=== PATIENT | female | born 1975 | race Caucasian/White ===

== ENCOUNTER 2017-09-19 16:13 | Emergency (ER) | payer MEDICAID, OTHER ==
[~2017-09-19] VITALS: Ht 175.3 cm; Wt 72.0 kg
[2017-09-19] MEDS ORDERED: ketorolac trometh inj. 60 MG/2 ML VIAL IM ONE (16:30)
[2017-09-19] MEDS ORDERED: NAPR-56 PO (16:31)
[2017-09-19] MEDS ORDERED: PENI250T2 PO (16:31)
[2017-09-19 17:13] VITALS: BP 132/72
== END 2017-09-19 17:15 | disposition home or self-care (01) ==
LOC: ER 16:15
DX: S02.5XXA Fracture of tooth (traumatic), initial encounter for closed fracture (principal); K00.7 Teething syndrome; Z88.8 Allergy status to other drugs, medicaments and biological substances; X58.XXXA Exposure to other specified factors, initial encounter; Y93.89 Activity, other specified; Y99.8 Other external cause status; Y92.89 Other specified places as the place of occurrence of the external cause
CPT/HCPCS: 96372; 99283; J1885

== ENCOUNTER 2017-12-27 19:14 | Emergency (ER) | payer MEDICAID, OTHER ==
[~2017-12-27] VITALS: Ht 170.2 cm; Wt 65.0 kg
[2017-12-27 19:20] VITALS: BP 160/117
== END 2017-12-27 19:58 | disposition left against medical advice (07) ==
LOC: ER 19:15
DX: R00.0 Tachycardia, unspecified (principal); Z53.21 Procedure and treatment not carried out due to patient leaving prior to being seen by health care provider

== ENCOUNTER 2019-04-21 14:10 | Emergency (ER) | payer OTHER ==
[~2019-04-21] VITALS: Ht 172.7 cm; Wt 73.9 kg
[~2019-04-21 14:10] MED LIST: ALBU18HF2 INH; PANT-47 PO
[2019-04-21 14:26] VITALS: BP 137/97
== END 2019-04-21 16:37 | disposition left against medical advice (07) ==
LOC: ER 14:11
DX: R19.7 Diarrhea, unspecified (principal); R42 Dizziness and giddiness; Z53.21 Procedure and treatment not carried out due to patient leaving prior to being seen by health care provider
CPT/HCPCS: 93005

== ENCOUNTER 2020-11-09 11:26 | Emergency (ER) | payer SELFPAY ==
[~2020-11-09] VITALS: Ht 170.2 cm; Wt 84.0 kg
[2020-11-09 11:43] VITALS: BP 158/109
[2020-11-09] MEDS ORDERED: morphine 4 MG/ML inj SYRINge IV PRN (11:45)
[2020-11-09] MEDS ORDERED: normal saline 1000ML IV soln IVB ONE (11:45)
[2020-11-09] MEDS ORDERED: ondansetron/PF 4mg/2ml inj IV ONE (11:45)
[2020-11-09 12:01] LABS: BASOPHILS # (AUTO) 0.1 X10'3 (0-0.2); BASOPHILS % (AUTO) 1.9 % (0-1); EOSINOPHILS # (AUTO) 0.1 X10'3 (0-0.9); EOSINOPHILS % (AUTO) 1.9 % (0-6); HEMATOCRIT 41.4 % (35.0-45.0); HEMOGLOBIN 14.1 g/dl (12.0-16.0); LYMPHOCYTES # (AUTO) 1.5 X10'3 (1.1-4.8); LYMPHOCYTES % (AUTO) 39.4 % (21-51); MEAN CORPUSCULAR HEMOGLOBIN 30.6 PG (27.0-31.0); MEAN PLATELET VOLUME 8.3 FL (7.4-10.4); MONOCYTES # (AUTO) 0.6 X10'3 (0-0.9); MONOCYTES % (AUTO) 15.6 % (2-12); NEUTROPHILS # (AUTO) 1.5 X10'3 (1.8-7.7); NEUTROPHILS % (AUTO) 41.2 % (42-75); PLATELET COUNT 239 X10'3 (140-440); RED BLOOD COUNT 4.61 X10'6 (4.20-5.60); RED CELL DISTRIBUTION WIDTH 12.6 % (11.5-14.5); WHITE BLOOD COUNT 3.7 X10'3 (4.5-11.0)
[2020-11-09 12:26] LABS: ALANINE AMINOTRANSFERASE 34 U/L (12-78); ALBUMIN 4.4 G/DL (3.4-5.0); ALBUMIN/GLOBULIN RATIO 1.1 (1.1-1.5); ALKALINE PHOSPHATASE 78 IU/L (46-116); ANION GAP 10 (8-16); ASPARTATE AMINO TRANSFERASE 24 U/L (10-37); BILIRUBIN,TOTAL 0.8 MG/DL (0.1-1.0); BLOOD UREA NITROGEN 13 MG/DL (7-18); BUN/CREATININE RATIO 16.5 (6.6-38.0); CALCIUM 9.3 MG/DL (8.5-10.1); CHLORIDE 103 MMOL/L (99-107); CREATININE 0.79 MG/DL (0.40-0.90); GLUCOSE 108 MG/DL (70-104); POTASSIUM 3.6 MMOL/L (3.5-5.1); SODIUM 137 MMOL/L (135-145); TOTAL CARBON DIOXIDE 23.7 MMOL/L (24-32); TOTAL PROTEIN 8.3 G/DL (6.4-8.2); eGFR 78 ML/MIN
[2020-11-09 12:34] LABS: MAGNESIUM 2.2 MG/DL (1.5-2.4)
[2020-11-09] MEDS ORDERED: CHLO25CA10 PO (14:32)
--- NOTE | 2020-11-09 14:43 | NUR ---
Spoke with Dr. Martin regarding previously ordered medications of NS bolus, morphine, and zofran. Dr. Martin stated that those were no longer needed and to cancel orders.
== END 2020-11-09 15:19 | disposition home or self-care (01) ==
LOC: ER 11:27
DX: R00.2 Palpitations (principal); F10.129 Alcohol abuse with intoxication, unspecified; F41.9 Anxiety disorder, unspecified; R11.0 Nausea; R07.89 Other chest pain; R06.02 Shortness of breath; I10 Essential (primary) hypertension; F31.9 Bipolar disorder, unspecified; F20.9 Schizophrenia, unspecified; F12.90 Cannabis use, unspecified, uncomplicated; Z86.73 Personal history of transient ischemic attack (TIA), and cerebral infarction without residual deficits; Z72.89 Other problems related to lifestyle; Z98.890 Other specified postprocedural states; Z88.8 Allergy status to other drugs, medicaments and biological substances; Z79.899 Other long term (current) drug therapy; Y90.9 Presence of alcohol in blood, level not specified
CPT/HCPCS: 36415; 71045; 80053; 83735; 83880; 84484; 85025; 93005; 99285

== ENCOUNTER 2024-03-30 09:34 | Emergency (ER) | payer BC, OTHER ==
[~2024-03-30] VITALS: Ht 175.3 cm; Wt 85.2 kg
[~2024-03-30 09:34] MED LIST changes: +CHLO25CA10 PO
[2024-03-30 09:41] VITALS: BP 163/106
[2024-03-30 10:39] LABS: BILIRUBIN,URINE NEGATIVE (Neg); CLARITY,URINE CLEAR (Clear); COLOR,URINE YELLOW (Yellow); GLUCOSE, URINE NEGATIVE (Neg); KETONES,URINE NEGATIVE (Neg); LEUKOCYTE ESTERASE ,URINE MODERATE (Neg); NITRITES, URINE NEGATIVE (Neg); OCCULT BLOOD,URINE NEGATIVE (Neg); PROTEIN,URINE NEGATIVE (Neg); UROBILINOGEN,URINE 0.2 E.U/dL (0.2-1.0)
[2024-03-30 10:51] LABS: UA COLLECTION TYPE CLN CATCH MIDSTREAM
[2024-03-30 10:54] LABS: BACTERIA,URINE FEW /HPF (Neg); MUCUS STRANDS FEW /LPF (Neg); RBC,URINE 0-2 /HPF (0-2); SQUAMOUS EPITHELIAL CELL,UR FEW /LPF (FEW); TRANSITIONAL EPI CELLS,URINE FEW /HPF
[2024-03-30 10:55] LABS: BASOPHILS % (AUTO) 0.7 % (0-1); EOSINOPHILS % (AUTO) 0.7 % (0-6); HEMATOCRIT 42.2 % (35.0-45.0); LYMPHOCYTES # (AUTO) 2.4 X10'3 (1.1-4.8); LYMPHOCYTES % (AUTO) 39.2 % (21-51); MEAN CORPUSCULAR HEMOGLOBIN 30.1 PG (27.0-31.0); MEAN CORPUSCULAR HGB CONC 33.2 g/dL (33.0-36.5); MEAN CORPUSCULAR VOLUME 90.7 FL (78-98); MEAN PLATELET VOLUME 8.7 FL (7.4-10.4); MONOCYTES # (AUTO) 0.6 X10'3 (0-0.9); MONOCYTES % (AUTO) 10.6 % (2-12); NEUTROPHILS % (AUTO) 48.8 % (42-75); PLATELET COUNT 291 X10'3 (140-440); RED BLOOD COUNT 4.66 X10'6 (4.20-5.60); RED CELL DISTRIBUTION WIDTH 14.3 % (11.5-14.5); WHITE BLOOD COUNT 6.1 X10'3 (4.5-11.0)
[2024-03-30 11:06] LABS: ALANINE AMINOTRANSFERASE 28 U/L (12-78); ALBUMIN 4.1 G/DL (3.4-5.0); ALKALINE PHOSPHATASE 85 IU/L (46-116); ANION GAP 10 (8-16); ASPARTATE AMINO TRANSFERASE 13 U/L (10-37); BILIRUBIN,TOTAL 0.5 MG/DL (0.1-1.0); BLOOD UREA NITROGEN 16 MG/DL (7-18); BUN/CREATININE RATIO 21.9 (10.0-20.0); CALCIUM 9.6 MG/DL (8.5-10.1); CHLORIDE 104 MMOL/L (99-107); CREATININE 0.73 MG/DL (0.40-0.90); GLUCOSE 101 MG/DL (70-104); LIPASE 47 U/L (16-77); SODIUM 141 MMOL/L (135-145); TOTAL CARBON DIOXIDE 27.2 MMOL/L (24-32); TOTAL PROTEIN 8.4 G/DL (6.4-8.2); eCRCL 96 ML/MIN; eGFR 84 ML/MIN
[2024-03-30 11:43] LABS: HCG SERUM QL NEGATIVE
[2024-03-30] MEDS: dicyclomine 10 MG capsule PO ONE (12:21)
[2024-03-30] MEDS: ondansetron 4mg rapidly disintigrating tab PO ONE (12:21)
[2024-03-30] MEDS: CefTRIAXone 1000mg IM Kit (w/lidocaine diluent) IM ONE (12:22)
[2024-03-30] MEDS: dexamethasone sod phosphate 10mg/ml inj IM STA (12:22)
[2024-03-30] MEDS: ketorolac trometh 30MG/ML vial 30 MG/ML VIAL IM ONE (12:22)
[2024-03-30] MEDS ORDERED: DICY20TA17 PO (13:05)
[2024-03-30] MEDS ORDERED: ONDA-243 PO (13:05)
[2024-03-30] MEDS ORDERED: PRED1TAB PO (13:05)
[2024-03-30 13:17] VITALS: PULSE 70; RESP 16; TEMP 98.1; O2SAT 97
== END 2024-03-30 13:18 | disposition home or self-care (01) ==
LOC: ER 09:35
DX: R10.84 Generalized abdominal pain (principal); I10 Essential (primary) hypertension; F20.9 Schizophrenia, unspecified; F41.9 Anxiety disorder, unspecified; F32.A Depression, unspecified; F12.90 Cannabis use, unspecified, uncomplicated; F10.90 Alcohol use, unspecified, uncomplicated; Z88.8 Allergy status to other drugs, medicaments and biological substances; Z79.899 Other long term (current) drug therapy; Z86.73 Personal history of transient ischemic attack (TIA), and cerebral infarction without residual deficits
CPT/HCPCS: 36415; 74018; 80053; 81001; 83690; 84703; 85025; 87088; 96372; 99284; J0696; J1100; J1885